=== PATIENT | female | born 1965 | race African-American/Black ===

== ENCOUNTER 2020-11-21 13:13 | Inpatient (IN) | payer OTHER ==
[2020-11-21 16:09] VITALS: BMI 21.9
[2020-11-21] MEDS ORDERED: NICOTINE POLACRILEX 2 MG GUM BUC PRN (19:27)
[2020-11-21] MEDS ORDERED: MAGNESIUM CITRATE 300 ML BOTTLE PO PRN (19:27)
[2020-11-21] MEDS ORDERED: MENTHOL/PHENOL 1 EACH UD MM PRN (19:27)
[2020-11-21] MEDS ORDERED: MAG HYDROX/AL HYDROX/SIMETH 30 ML UNIT-DOSE CUP PO PRN (19:27)
[2020-11-21] MEDS ORDERED: ONDANSETRON *ODT* 4 MG TABLET SL PRN (19:27)
[2020-11-21] MEDS ORDERED: BISMUTH SUBSALICYLATE 524 MG/30 ML UD PO PRN (19:27)
[2020-11-21] MEDS ORDERED: MAGNESIUM HYDROX 2400MG/30ML ORAL SUSPENSION 30 ML CUP PO PRN (19:27)
[2020-11-21] MEDS ORDERED: ACETAMINOPHEN 325 MG TABLET (FP) PO PRN (19:27)
[2020-11-21] MEDS ORDERED: METHADONE HCL 10 MG TABLET (FOR DETOX USE ONLY) PO ONE (19:27)
[2020-11-21] MEDS ORDERED: METHADONE (DETOX) 20 MG, METHADONE (DETOX) 5 MG PO ONE (20:00)
[2020-11-21] MEDS ORDERED: METHADONE HCL 10 MG TABLET (FOR DETOX USE ONLY) ONE (20:27)
[2020-11-21] MEDS ORDERED: METHADONE HCL 5 MG TABLET (FOR DETOX USE ONLY) ONE (20:27)
[2020-11-21] MEDS: THIAMINE HCL 100 MG TABLET (FP) PO SCH (22:49)
[2020-11-21] MEDS: MELATONIN 5 MG TABLETS PO PRN (22:50)
[2020-11-21] MEDS: cloNIDine HCL 0.1 MG TABLET PO PRN (22:50)
[2020-11-22] MEDS ORDERED: METHADONE HCL 10 MG TABLET (FOR DETOX USE ONLY) ONE (08:56)
[2020-11-22] MEDS ORDERED: METHADONE HCL 5 MG TABLET (FOR DETOX USE ONLY) ONE (08:56)
[2020-11-22] MEDS: cloNIDine HCL 0.1 MG TABLET PO PRN ×2 (08:58→13:34)
[2020-11-22] MEDS: METHOCARBAMOL 500 MG TABLET PO PRN (08:58)
[2020-11-22] MEDS ORDERED: METHADONE (DETOX) 20 MG, METHADONE (DETOX) 5 MG PO ONE (10:00)
[2020-11-22] MEDS: NICOTINE 7 MG/24 HOURS TOPICAL PATCH TD SCH (10:50)
[2020-11-22] MEDS: PRENATAL VITAMINS W/ FOLIC ACID TABLET (FP) PO SCH (10:52)
[2020-11-22] MEDS: IBUPROFEN 400 MG TABLET (FP) PO PRN (13:34)
[2020-11-22] MEDS: ACETAMINOPHEN 325 MG TABLET (FP) PO PRN (16:50)
[2020-11-22] MEDS: THIAMINE HCL 100 MG TABLET (FP) PO SCH (22:24)
[2020-11-22] MEDS: LISINOPRIL 20 MG TABLET PO SCH (22:24)
[2020-11-22] MEDS: MELATONIN 5 MG TABLETS PO PRN (22:25)
[2020-11-23] MEDS ORDERED: METHADONE HCL 10 MG TABLET (FOR DETOX USE ONLY) PO ONE (10:00)
[2020-11-23 10:54] LABS: POTASSIUM 4.1 mmol/L (3.5-5.1)
[2020-11-23 10:55] LABS: BASO % 0.8 % (0-2.0); EOS % 3.3 % (0-4.5); HEMATOCRIT 27.7 % (32.4-45.2); HEMOGLOBIN 9.2 GM/dL (10.7-15.3); LYMPH % 42.5 % (8-40); MCH 31.3 pg (25.7-33.7); MCHC 33.2 g/dl (32.0-36.0); MEAN CELL VOLUME 94.4 fl (80-96); NEUT % 43.4 % (42.8-82.8); PLATELET COUNT 204 K/MM3 (134-434); RBC 2.93 M/mm3 (3.60-5.2); RDW 14.4 % (11.6-15.6); WHITE BLOOD COUNT 4.9 K/mm3 (4.0-10.0)
[2020-11-23] MEDS: cloNIDine HCL 0.1 MG TABLET PO PRN (10:58)
[2020-11-23] MEDS: NICOTINE 7 MG/24 HOURS TOPICAL PATCH TD SCH (10:58)
[2020-11-23] MEDS: LISINOPRIL 20 MG TABLET PO SCH ×2 (10:58→22:48)
[2020-11-23] MEDS: PRENATAL VITAMINS W/ FOLIC ACID TABLET (FP) PO SCH (10:59)
[2020-11-23 11:02] LABS: CALCIUM 8.7 mg/dL (8.5-10.1)
[2020-11-23 11:05] LABS: CREATININE 1.4 mg/dL (0.55-1.3)
[2020-11-23 11:07] LABS: BILIRUBIN,TOTAL 0.2 mg/dL (0.2-1)
[2020-11-23] MEDS: ACETAMINOPHEN 325 MG TABLET (FP) PO PRN ×2 (17:42→23:16)
[2020-11-23] MEDS: THIAMINE HCL 100 MG TABLET (FP) PO SCH (22:48)
[2020-11-23] MEDS: METHOCARBAMOL 500 MG TABLET PO PRN (22:48)
[2020-11-24] MEDS ORDERED: METHADONE HCL 10 MG TABLET (FOR DETOX USE ONLY) ONE (09:03)
[2020-11-24] MEDS ORDERED: METHADONE HCL 5 MG TABLET (FOR DETOX USE ONLY) ONE (09:03)
[2020-11-24] MEDS ORDERED: METHADONE (DETOX) 10 MG, METHADONE (DETOX) 5 MG PO ONE (10:00)
[2020-11-24] MEDS: LISINOPRIL 20 MG TABLET PO SCH ×2 (10:27→22:58)
[2020-11-24] MEDS: PRENATAL VITAMINS W/ FOLIC ACID TABLET (FP) PO SCH (10:27)
[2020-11-24] MEDS: NICOTINE 7 MG/24 HOURS TOPICAL PATCH TD SCH (10:29)
[2020-11-24 12:06] LABS: HEMATOCRIT 31.5 % (32.4-45.2); HEMOGLOBIN 10.4 GM/dL (10.7-15.3); MCH 31.2 pg (25.7-33.7); MCHC 32.9 g/dl (32.0-36.0); MEAN CELL VOLUME 94.7 fl (80-96); MEAN PLT VOLUME 11.1 fl (7.5-11.1); PLATELET COUNT 257 K/MM3 (134-434); RBC 3.33 M/mm3 (3.60-5.2); RDW 14.3 % (11.6-15.6); WHITE BLOOD COUNT 6.1 K/mm3 (4.0-10.0)
[2020-11-24 12:12] LABS: CALCIUM 9.5 mg/dL (8.5-10.1)
[2020-11-24 12:16] LABS: CREATININE 1.3 mg/dL (0.55-1.3)
[2020-11-24] MEDS: ACETAMINOPHEN 325 MG TABLET (FP) PO PRN (17:44)
[2020-11-24] MEDS: DOXYCYCLINE HYCLATE 100 MG TABLET PO SCH (17:45)
[2020-11-24] MEDS: IBUPROFEN 400 MG TABLET (FP) PO PRN (21:02)
[2020-11-24] MEDS: MELATONIN 5 MG TABLETS PO PRN (22:58)
[2020-11-24] MEDS: THIAMINE HCL 100 MG TABLET (FP) PO SCH (22:58)
[2020-11-25] MEDS: DOXYCYCLINE HYCLATE 100 MG TABLET PO SCH ×2 (09:47→22:45)
[2020-11-25] MEDS: LISINOPRIL 20 MG TABLET PO SCH ×3 (09:47→22:53)
[2020-11-25] MEDS: PRENATAL VITAMINS W/ FOLIC ACID TABLET (FP) PO SCH (09:47)
[2020-11-25] MEDS: IBUPROFEN 400 MG TABLET (FP) PO PRN (09:49)
[2020-11-25] MEDS: NICOTINE 7 MG/24 HOURS TOPICAL PATCH TD SCH (09:49)
[2020-11-25] MEDS ORDERED: METHADONE HCL 10 MG TABLET (FOR DETOX USE ONLY) PO ONE (10:00)
[2020-11-25] MEDS: METHOCARBAMOL 500 MG TABLET PO PRN (11:47)
[2020-11-25] MEDS: MELATONIN 5 MG TABLETS PO PRN (22:45)
[2020-11-25] MEDS: THIAMINE HCL 100 MG TABLET (FP) PO SCH (22:45)
[2020-11-26] MEDS ORDERED: METHADONE HCL 5 MG TABLET (FOR DETOX USE ONLY) PO ONE ×2 (06:00→09:17)
[2020-11-26 09:09] VITALS: BP 118/73; PULSE 64; TEMP 98.3
[2020-11-26] MEDS: PRENATAL VITAMINS W/ FOLIC ACID TABLET (FP) PO SCH (09:31)
[2020-11-26] MEDS: NICOTINE 7 MG/24 HOURS TOPICAL PATCH TD SCH (09:31)
[2020-11-26] MEDS: LISINOPRIL 20 MG TABLET PO SCH (09:31)
[2020-11-26] MEDS: DOXYCYCLINE HYCLATE 100 MG TABLET PO SCH (09:31)
== END 2020-11-26 09:52 | disposition home or self-care (01) | DRG 773 ==
LOC: YASAS 13:13 → Y3N 19:47
PROVIDERS: ADMIT Allergy & Immunology; ATTEND Allergy & Immunology
PROC: HZ2ZZZZ Detoxification Services for Substance Abuse Treatment (ICD-10-PCS; principal; 2020-11-21)
DX: F11.23 Opioid dependence with withdrawal (principal); F10.230 Alcohol dependence with withdrawal, uncomplicated; F14.20 Cocaine dependence, uncomplicated; F17.210 Nicotine dependence, cigarettes, uncomplicated; A53.9 Syphilis, unspecified; I10 Essential (primary) hypertension; J45.909 Unspecified asthma, uncomplicated; K21.9 Gastro-esophageal reflux disease without esophagitis; R79.89 Other specified abnormal findings of blood chemistry; R63.8 Other symptoms and signs concerning food and fluid intake; Z88.0 Allergy status to penicillin
CPT/HCPCS: 36415; 80048; 80053; 81025; 85025; 85027; 86593; 86780; 93005; 93010; C9803; J0735; U0003